=== PATIENT | male | born 1995 | race Caucasian/White ===

== ENCOUNTER 2018-08-15 11:48 | Emergency (ER) | payer BC ==
[~2018-08-15] VITALS: Ht 175.3 cm; Wt 79.8 kg
[2018-08-15 12:02] VITALS: BP 131/85
== END 2018-08-15 12:35 | disposition home or self-care (01) ==
LOC: ED 12:30
DX: B00.1 Herpesviral vesicular dermatitis (principal)
CPT/HCPCS: 99283